=== PATIENT | male | born 1955 | race Native Hawaiian/Other Pacific Islander ===

== ENCOUNTER 2024-02-23 11:46 | Emergency (ER) | payer MEDICAID, SELFPAY ==
[2024-02-23] VITALS (16 sets, daily range): BP systolic 146–196; BP diastolic 63–95; PULSE 56–70; TEMP 37; O2SAT 97–100; BMI 28.3
--- NOTE | 2024-02-23 12:03 | ECG_ITS ---
The [facility] Test Date: 2024-02-23 Pat Name: TIMUR FISHER Department: Room: - Gender: Male [employer]: : 1955 Requested By: [id number] Order Number: [id number] Reading MD: GEETA GRIFFIN Measurements Intervals [place] Rate: 62 P: 63 W[place]: 124 QRS: 53 QRSD: 80 T: 47 QT: 410 QTc: 415 Interpretive Statements 1100 Sinus rhythm 9110 normal ECG No previous ECG available for comparison Electronically Signed On 02-23-2024 20:22:21 EST by GEETA GRIFFIN
--- NOTE | 2024-02-23 12:04 | XR_ITS ---
The [address] [address] Patient Name: TIMUR FISHER MRN: [id number] date: 1955 Sex: M Assigned Patient Location: ER Current Patient Location: ER Accession/Order Number: [id number] Exam Date: 02/23/2024 12:12 Report Date: 02/23/2024 12:59 At the request of: MARILUZ RAE Procedure: XR chest 1V EXAMINATION: XR chest 1V HISTORY: Dizziness COMPARISON: None TECHNIQUE: AP portable FINDINGS: LUNGS: No significant pulmonary parenchymal abnormalities. VASCULATURE: No increased pulmonary vasculature. PLEURA: No pneumothorax, effusion, or pleural thickening. CARDIAC: No cardiomegaly or cardiac silhouette abnormality. MEDIASTINUM: No visible mass or adenopathy. BONES: Mild degenerative disc disease and spondylosis without visible acute abnormalities. OTHER: Negative. XR/XR chest 1V IMPRESSION: No acute cardiopulmonary process Electronically authenticated by: VERÓNICA GARCES Date: 02/23/2024 12:59
--- NOTE | 2024-02-23 12:04 | CT_ITS ---
The [address] [address] Patient Name: TIMUR FISHER MRN: [facility]:[id number] date: 1955 Sex: M Assigned Patient Location: ER Current Patient Location: Accession/Order Number: [id number] Exam Date: 02/23/2024 12:15 Report Date: 02/23/2024 12:54 At the request of: MARILUZ RAE Procedure: CT head/brain wo con EXAM: CT head/brain wo con HISTORY: Dizziness COMPARISON: None. TECHNIQUE: Axial noncontrast CT imaging of the head was performed with coronal and sagittal reformats. This CT exam was performed using one or more of the following dose reduction techniques: Automated exposure control, adjustment of the MA and/or kV according to patient size, or use of iterative reconstruction technique. FINDINGS: Calvarium/skull base: No evidence of acute fracture or destructive lesion. Right globe prosthesis. Complete opacification of the right mastoid and partial opacification of right middle ear. No substantial sclerosis or loss of retromastoid septa. No osseous erosive change given the large field of view technique. Partial left mastoid effusion. Paranasal sinuses: No air fluid levels. Brain: No acute intracranial hemorrhage. No acute large vascular territory infarct. No mass lesion or mass effect. No hydrocephalus. CT/CT head/brain wo con IMPRESSION: 1. No acute large vascular territory infarct or acute cranial hemorrhage. 2. Right mastoid and middle ear effusion with subtotal opacification of the middle ear. Partial left mastoid effusion. This is nonspecific with acute otomastoiditis is not excluded. No evidence for coalescent mastoiditis with a large field of view technique. Electronically authenticated by: INNA CEBALLOS Date: 02/23/2024 12:54
--- NOTE | 2024-02-23 12:04 | ED.DIZZY1 ---
HPI - Dizziness General Chief Complaint: Chest Pain Stated Complaint: chest pains dizzy Time Seen by Provider: 02/23/24 11:47 Source: patient Mode of arrival: walk-in Limitations: no limitations History of Present Illness HPI Narrative: 68-year-old male presents for dizziness. He has been having this in the morning when he wakes up for the past 3 days and today was the worst. He states that he feels like he is spinning and drunk. He had a little bit of chest pain but gets that from time to time because of a known sternal injury. That does not seem to be anything new. No recent trauma or fever or cough. No palpitations or syncope. No localized weakness. He has never had issues with vertigo before. Related Data Home Medications ?Medication ?Instructions ?Recorded ?Confirmed naproxen 500 mg tablet mg 02/23/24 Previous Rx's ?Medication ?Instructions ?Recorded amoxicillin 500 mg capsule 500 mg PO TID 10 days #30 caps 02/23/24 meclizine 25 mg tablet 25 mg PO QID PRN dizziness #20 tabs 02/23/24 Allergies Allergy/AdvReac Type Severity Reaction Status Date / Time No Known Drug Allergies Allergy Verified 02/23/24 11:55 Review of Systems ROS Narrative A ten point review of systems is negative except as noted above. PFSH PFSH Social History Little interest or pleasure in doing things: not at all Feeling down, depressed, or hopeless: not at all Exam Narrative Exam Narrative: Nurses note and vital signs reviewed and patient is not hypoxic. General: The patient appears well and in no apparent distress. Patient is resting comfortably on cart. Skin: Warm, dry, no pallor noted. There is no rash noted. Head: Normocephalic, atraumatic Eye: Normal conjunctiva, no drainage Ears, Nose, Mouth, and Throat: oral mucosa is moist. Nares patent. Both TMs and external canals are normal. Cardiovascular: Regular Rate and Rhythm Respiratory: Patient is in no distress, no accessory muscle use, lungs are clear to auscultation, no wheezing, rales or rhonchi Back: non-tender GI: Soft and nontender Musculoskeletal: The patient has no evidence of calf tenderness, no pitting edema, symmetrical pulses noted bilaterally Neurological: A&O, normal speech; upper and lower extremity strength 5 out of 5 and symmetric. Psychiatric: Cooperative Constitutional Vital Signs, click to edit/add: Last Vital Signs Temp 98.6 F 02/23/24 11:50 Pulse 59 L 02/23/24 12:30 Resp 11 L 02/23/24 12:30 BP 169/80 H 02/23/24 12:30 Pulse Ox 99 02/23/24 12:30 O2 Del Method Room Air 02/23/24 11:50 Course Vital Signs Vital signs: Vital Signs Temperature 98.6 F 02/23/24 11:50 Pulse Rate 70 02/23/24 11:50 Respiratory Rate 18 02/23/24 11:50 Blood Pressure 196/63 H 02/23/24 11:50 Pulse Oximetry 97 02/23/24 11:50 Oxygen Delivery Method Room Air 02/23/24 11:50 Temperature 98.6 F 02/23/24 11:50 Pulse Rate 59 L 02/23/24 12:30 Respiratory Rate 11 L 02/23/24 12:30 Blood Pressure 169/80 H 02/23/24 12:30 Pulse Oximetry 99 02/23/24 12:30 Oxygen Delivery Method Room Air 02/23/24 11:50 MDM - Dizziness MDM Narrative Medical decision making narrative: CT scan findings were discussed with the patient and he is prescribed amoxicillin and Antivert. Treatment diagnosis and follow-up were discussed thoroughly. Follow-up was recommended in 1 to 2 weeks. Differential Diagnosis Differential diagnosis: Likely benign paroxysmal positional vertigo and other (Otitis media, mastoiditis) Lab Data Attestation: I reviewed the patient's lab results. Labs: Lab Results 02/23/24 Range/Units 12:00 WBC 5.2 (4.0-11.0) 10^3/uL RBC 4.71 (4.70-6.10) 10^6/uL Hgb 14.5 (14.0-18.0) g/dL Hct 42.1 (42.0-54.0) % MCV 89.4 (80.0-94.0) fL MCH 30.8 (25.9-34.0) pg MCHC 34.4 (29.9-35.2) g/dL RDW 12.1 (11.0-15.0) % Plt Count 232 (150-450) 10^3/uL MPV 9.8 (9.5-13.5) fL Neut % (Auto) 66.0 (43.0-75.0) % Lymph % (Auto) 24.1 (20.5-60.0) % [place] % (Auto) 6.6 (1.7-12.0) % Eos % (Auto) 2.7 (0.9-7.0) % Baso % (Auto) 0.4 (0.2-2.0) % Neut # (Auto) 3.4 (1.4-6.5) 10^3/uL Lymph # (Auto) 1.3 (1.2-3.8) 10^3/uL [place] # (Auto) 0.3 (0.3-0.8) 10^3/uL Eos # (Auto) 0.1 (0.0-0.7) 10^3/uL Baso # (Auto) 0.0 (0.0-0.1) 10^3/uL Abs Immat Gran (auto) 0.01 (0.00-0.03) 10^3/uL Imm/Tot Granulo (auto) 0.2 (0.0-0.5) % Sodium 140 (136-145) mmol/L Potassium 4.0 (3.5-5.1) mmol/L Chloride 105 (98-107) mmol/L Carbon Dioxide 28.1 (21.0-32.0) mmol/L Anion Gap 10.9 BUN 35.0 H (7.0-18.0) mg/dL Creatinine 1.27 (0.70-1.30) mg/dL Est GFR ( Amer) >60 (>=60 mL/min/1.73m^2) Est GFR (Non-Af Amer) 56 L (>=60 mL/min/1.73m^2) BUN/Creatinine Ratio 27.6 Glucose 106 (74-106) mg/dL Calcium 8.9 (8.5-10.1) mg/dL Troponin I High Sens 4.9 (4.0-76.1) pg/mL Imaging Data CT scan - head: Radiologist's impression: ITS Impressions Chest X-Ray 02/23/24 12:04 IMPRESSION: No acute cardiopulmonary process Electronically authenticated by: VERÓNICA GARCES Date: 02/23/2024 12:[address] 02/23/24 12:04 IMPRESSION: 1. No acute large vascular territory infarct or acute cranial hemorrhage. 2. Right mastoid and middle ear effusion with subtotal opacification of the middle ear. Partial left mastoid effusion. This is nonspecific with acute otomastoiditis is not excluded. No evidence for coalescent mastoiditis with a large field of view technique. Electronically authenticated by: INNA CEBALLOS Date: 02/23/2024 12:54 ECG Data Attestation: I personally reviewed and interpreted this ECG as follows: (EKG on my interpretation shows normal sinus rhythm with rate of 62 and no acute change) Discharge Plan Discharge Chief Complaint: Chest Pain Clinical Impression: Acute mastoiditis, Vertigo Patient Disposition: Home, Self-Care Time of Disposition Decision: 13:13 Condition: Good Mode of Transportation: Private Vehicle Prescriptions / Home Meds: New amoxicillin 500 mg capsule 500 mg PO TID 10 Days Qty: 30 0RF meclizine 25 mg tablet 25 mg PO QID PRN (Reason: dizziness) Qty: 20 0RF No Action naproxen 500 mg tablet Print Language: Pashto Instructions: Vertigo (ED), Mastoiditis (ED) Referrals: TEJA LEY [Primary Care Provider] - 1 week
[2024-02-23] MEDS: MECLIZINE HCL 12.5 MG TABLET 25 MG PO (12:12)
[2024-02-23 12:37] LABS: Basophils Percent Auto 0.4 % (0.2-2.0); Eosinophils Absolute Auto 0.1 10^3/uL (0.0-0.7); Eosinophils Percent Auto 2.7 % (0.9-7.0); Hematocrit 42.1 % (42.0-54.0); Hemoglobin 14.5 g/dL (14.0-18.0); Immature Granulocytes Abs Auto 0.01 10^3/uL (0.00-0.03); Immature Granulocytes Pct Auto 0.2 % (0.0-0.5); Lymphocytes Absolute Auto 1.3 10^3/uL (1.2-3.8); Lymphocytes Percent Auto 24.1 % (20.5-60.0); Mean Corpuscular HGB Conc 34.4 g/dL (29.9-35.2); Mean Corpuscular Hemoglobin 30.8 pg (25.9-34.0); Mean Corpuscular Volume 89.4 fL (80.0-94.0); Mean Platelet Volume 9.8 fL (9.5-13.5); Monocytes Absolute Auto 0.3 10^3/uL (0.3-0.8); Monocytes Percent Auto 6.6 % (1.7-12.0); Neutrophils Absolute Auto 3.4 10^3/uL (1.4-6.5); Platelet Count 232 10^3/uL (150-450); Red Blood Count 4.71 10^6/uL (4.70-6.10); Red Cell Distribution Width 12.1 % (11.0-15.0); White Blood Count 5.2 10^3/uL (4.0-11.0)
[2024-02-23 12:54] LABS: Anion Gap 10.9; BUN Creatinine Ratio 27.6; Calcium 8.9 mg/dL (8.5-10.1); Carbon Dioxide 28.1 mmol/L (21.0-32.0); Chloride 105 mmol/L (98-107); Estimated GFR (African America >60 (>=60 mL/min/1.73m^2); Estimated GFR (Non-African Ame 56 (>=60 mL/min/1.73m^2); Glucose 106 mg/dL (74-106); Sodium 140 mmol/L (136-145)
[2024-02-23 13:02] LABS: Troponin I High Sensitivity 4.9 pg/mL (4.0-76.1)
== END 2024-02-23 13:26 | disposition home or self-care (01) ==
PROVIDERS: Emergency Provider Emergency Medicine; PCP Family Medicine
DX: R42 Dizziness and giddiness (principal); H70.009 Acute mastoiditis without complications, unspecified ear
CPT/HCPCS: 36415; 70450; 71045; 80048; 84484; 85025; 93005; 99285